=== PATIENT | female | born 1970 | race Caucasian/White ===

== ENCOUNTER 2017-02-25 07:14 | Day surgery (SDC) | payer MEDICAID ==
[~2017-02-25] VITALS: Ht 157.5 cm; Wt 53.5 kg
[2017-02-25] MEDS ORDERED: MIDAZOLAM 2 MG/2 ML VIAL ONE (07:45)
[2017-02-25] MEDS ORDERED: fentaNYL 0.05 MG/ML VIAL ONE (07:45)
[2017-02-25] MEDS ORDERED: ELA25 PO (08:25)
[2017-02-25] MEDS ORDERED: OMEP20TC12 PO (08:25)
[2017-02-25] MEDS ORDERED: MIDAZOLAM 2 MG/2 ML VIAL IVP ONE (10:45)
== END 2017-02-25 11:20 | disposition home or self-care (01) ==
LOC: MDS 07:14 → MMU 07:22 → MDS 11:20
PROVIDERS: ATTEND Internal Medicine Gastroenterology
DX: R12 Heartburn (principal); K21.9 Gastro-esophageal reflux disease without esophagitis; Z79.899 Other long term (current) drug therapy; Z98.51 Tubal ligation status; F41.9 Anxiety disorder, unspecified
CPT/HCPCS: 43235; J2250; J3010